=== PATIENT | female | born 1940 | race Caucasian/White ===

== ENCOUNTER → 2018-03-20 | Outpatient (CLI) | payer MEDICARE, OTHER ==
[~2018-03-20] MED LIST: AMANTADINE100 M1 PO; AMANTADINE100 MG PO; Ascorbic Acid,Ester- PO; COMTAN PO; COMTAN200 MG PO; Colace PO; Dulcolax PR; LIDODERM 5% P1 PATCH TD; Lidoderm 5% Patch TD; MELOXICAM15 MG PO; MIRALAX17 GM PO; MYRBETRIQ50 MG PO; Miralax, Glycolax PO; Mobic PO; Myrbetriq PO; Oscal 500 w/Vitamin PO; Parcopa 25/100 PO; REQUIP PO; Robaxin PO; SINEMET 25-1001 EACH PO; SINEMET 25-11 TABLET PO; SINEMET CR 50-1 EACH PO; SINEMET PO; SYMMETREL100 M2 PO; Senokot S,Pericolace PO; Senokot,Sennagen PO; Sinemet 25-100 PO; Symmetrel PO; Theragran PO; Vicodin,Norco 5/325 PO; Vitamin B-12
== END | disposition home or self-care (01) ==
LOC: CDC 14:03
DX: Z01.810 Encounter for preprocedural cardiovascular examination (principal); R32 Unspecified urinary incontinence; I44.0 Atrioventricular block, first degree; I45.10 Unspecified right bundle-branch block
CPT/HCPCS: 93000